=== PATIENT | male | born 1940 | race Caucasian/White ===

== ENCOUNTER 2020-11-29 11:50 | Outpatient (CLI) | payer MEDICARE, OTHER, SELFPAY ==
--- NOTE | ~2020-11-29 | MR_ITS ---
EXAMINATION: MR lumbar spine wo/w con DATE: 11/29/2020 13:07 INDICATION: Left-sided low back pain radiating down the left leg. TECHNIQUE: Magnetic resonance imaging (MRI) of the lumbar spine was performed without and with 15 mL MultiHance intravenous contrast. Sequences included sagittal T2-weighted FSE, sagittal T2-weighted FS FSE, and sagittal and axial T1-weighted FSE. Postcontrast sequences included axial T2-weighted FSE a nd axial and sagittal T1-weighted FS FSE. COMPARISON: None FINDINGS: There is 6 degrees levocurvature of thoracolumbar spine. There is 3 mm retrolisthesis of L2 on L3 and 5 mm anterolisthesis of L4 on L5. There is mild chronic anterior wedging of L1 vertebral b tisha.. There is mildly decreased disc height from L1-L2 through L4-L5. The distal spinal cord signal i ntensity is normal. The conus medullaris is at L1. Partially visualized is a fusiform abdominal aorti c aneurysm measuring at least 3.3 cm. The following disc levels are specifically discussed: L1-L2: The disc is bulging. There is mild bilateral facet joint osteoarthritis. There is no neural fo raminal stenosis. There is mild central canal stenosis. L2-L3: The disc is bulging. There is moderate bilateral facet joint osteoarthritis. There is mild rig ht and moderate left neural foraminal stenosis. There is mild central canal stenosis. L3-L4: The disc is bulging and has an annular fissure. There is severe bilateral facet joint osteoart hritis. There is mild right and moderate left neural foraminal stenosis. There is mild central canal stenosis. L4-L5: The disc is bulging. There is severe bilateral facet joint osteoarthritis. There is moderate b ilateral neural foraminal stenosis. There is mild central canal stenosis. L5-S1: The disc is bulging and has an annular fissure. There is mild right and severe left facet join t osteoarthritis. There is mild right and moderate left neural foraminal stenosis. There is mild cent ral canal stenosis. IMPRESSION: 1. Moderate lumbar spondylosis. Reviewed, dictated and finalized at location A. GER PROJECT
[2020-11-29 12:22] LABS: Estimated Glomerular Filt Rate 42
== END 2020-11-29 11:51 | disposition home or self-care (01) ==
PROVIDERS: PCP Family Medicine; Visit Provider Family Medicine
DX: M54.42 Lumbago with sciatica, left side (principal); M47.896 Other spondylosis, lumbar region
CPT/HCPCS: 72158; A9577